=== PATIENT | female | born 1985 | race Hispanic/Latino ===

== ENCOUNTER 2017-02-21 18:27 | Emergency (ER) | payer SELFPAY ==
[2017-02-21 18:35] VITALS: BP 127/68; PULSE 107; RESP 16; TEMP 98.2; O2SAT 100
--- NOTE | 2017-02-21 19:40 | ED PDOC ---
HPI: Female Pain Time Seen by Provider: 02/21/17 18:41 Chief Complaint (Nursing): Female Genitourinary Chief Complaint (Provider): Vaginal Spotting History Per: Patient History/Exam Limitations: no limitations Onset/Duration Of Symptoms: Hrs Associated Symptoms: denies: Fever, Vomiting, Diarrhea, Back Pain Additional Complaint(s): 19:41 Hollie Reyes is a 32 year old 5-week female that presents to the ED with a chief complaint of vaginal spotting that she experienced today. Patient states that she has had superpubic pain this afternoon, and denies any vaginal bleeding or clotting, back pain, fever, vomiting, or diarrhea. PMD: None : 1 Para: 0 Past Medical History Reviewed: Historical Data, Nursing Documentation, Vital Signs Vital Signs: Last Vital Signs Temp 98.2 F 02/21/17 18:32 Pulse 107 H 02/21/17 18:32 Resp 16 02/21/17 18:32 BP 127/68 02/21/17 18:32 Pulse Ox 100 02/21/17 18:32 - Medical History PMH: No Chronic Diseases - Family History Family History: States: Unknown Family Hx - Allergies Allergies/Adverse Reactions: Allergies Allergy/AdvReac Type Severity Reaction Status Date / Time No Known Allergies Allergy Verified 02/21/17 18:35 Review of Systems Constitutional: Negative for: Fever Gastrointestinal: Negative for: Vomiting, Diarrhea Genitourinary Female: Positive for: Other (Pt experienced superpubic pain and vaginal spotting). Negative for: Vaginal Bleeding Musculoskeletal: Negative for: Back Pain Physical Exam - Reviewed Nursing Documentation Reviewed: Yes Vital Signs Reviewed: Yes - Physical Exam Appears: Positive for: Non-toxic, No Acute Distress Head Exam: Positive for: ATRAUMATIC, NORMOCEPHALIC Skin: Positive for: Normal Color, Warm Cardiovascular/Chest: Positive for: Regular Rate, Rhythm. Negative for: Murmur Respiratory: Positive for: Normal Breath Sounds. Negative for: Wheezing Gastrointestinal/Abdominal: Positive for: Soft, Tenderness (mild superpubic tenderness) Neurologic/Psych: Positive for: Alert, Oriented - ECG O2 Sat by Pulse Oximetry: 100 (RA) Pulse Ox Interpretation: Normal Medical Decision Making Medical Decision Makin:33 Initial Impression: Complication, DDx include Ectopic vs. Threatened Miscarriage Initial Plan: * ABO/RH Type * Type and Screen * Serium * Urine Dipstick * OB Transvaginal * Reevaluation * * FINDINGS: Uterus: Measures 6.4 x 3.6 x 4.0 cm. Single early intrauterine gestational sac identified. Yolk sac is seen. No pole is visualized. Estimated gestational age is approximately 5 weeks, based on a mean gestational sac diameter of 7.2 mm. Cervix appears closed. Right ovary: Within normal limits in appearance. Measures 2.3 x 1.3 x 1.4 cm. Flow seen in the right ovary on Doppler imaging, with no evidence of torsion. Left ovary: Within normal limits in appearance. Measures 3.0 x 1.8 x 3.0 cm. Flow seen in the left ovary on Doppler imaging, with no evidence of torsion. Cul-de-sac: No free fluid. IMPRESSION: Early intrauterine gestational sac containing a yolk sac, estimated gestational age of approximately 5 weeks. No pole is seen, and recommend a short term follow up ultrasound to confirm a viable intrauterine . Scribe Attestation: Documented by Inez Sheth, acting as a scribe for Jonathan Buitrago MD. Provider Scribe Attestation: All medical record entries made by the Scribe were at my direction and personally dictated by me. I have reviewed the chart and agree that the record accurately reflects my personal performance of the history, physical exam, medical decision making, and the department course for this patient. I have also personally directed, reviewed, and agree with the discharge instructions and disposition. Disposition - Clinical Impression Clinical Impression: Threatened - Patient ED Disposition Is Patient to be Admitted: No Doctor Will See Patient In The: Office Counseled Patient/Family Regarding: Studies Performed, Diagnosis, Need For Followup - Disposition Referrals: [facility] [Outside] Disposition: Routine/Home Disposition Time: 22:29 Condition: GOOD Additional Instructions: Follow up with your sales and marketing engineer within 1 week. Instructions: Threatened Miscarriage (ED)
--- NOTE | 2017-02-21 21:56 | US ---
EXAM: US , Transvaginal CLINICAL HISTORY: 32 years old, female; Signs and symptoms; Lmp or gestational age (in weeks): Unknown; Antepartum complications; Other: Spotting; ; Additional info: Vaginal spotting suprapubic pain TECHNIQUE: Real-time transvaginal obstetrical ultrasound of the maternal pelvis and a first trimester with image documentation. Transvaginal imaging was used for better evaluation of the fetus and adnexa. EXAM DATE/TIME: 02/21/2017 7:33 PM COMPARISON: No relevant prior studies available. FINDINGS: Uterus: Measures 6.4 x 3.6 x 4.0 cm. Single early intrauterine gestational sac identified. Yolk sac is seen. No pole is visualized. Estimated gestational age is approximately 5 weeks, based on a mean gestational sac diameter of 7.2 mm. Cervix appears closed. Right ovary: Within normal limits in appearance. Measures 2.3 x 1.3 x 1.4 cm. Flow seen in the right ovary on Doppler imaging, with no evidence of torsion. Left ovary: Within normal limits in appearance. Measures 3.0 x 1.8 x 3.0 cm. Flow seen in the left ovary on Doppler imaging, with no evidence of torsion. Cul-de-sac: No free fluid. IMPRESSION: Early intrauterine gestational sac containing a yolk sac, estimated gestational age of approximately 5 weeks. No pole is seen, and recommend a short term follow up ultrasound to confirm a viable intrauterine . See above for remaining findings.
== END 2017-02-21 22:39 | disposition home or self-care (01) ==
LOC: H.ER 18:27
DX: O20.0 Threatened abortion (principal); Z3A.01 Less than 8 weeks gestation of pregnancy

== ENCOUNTER 2017-10-18 20:10 | Inpatient (IN) | payer OTHER ==
[2017-10-18 20:42] VITALS: BMI 25.8
[2017-10-18] MEDS ORDERED: Lactated Ringer's 1,000 ML IV SCH ×2 (21:15)
[2017-10-18 21:34] LABS: BASO # 0.1 K/uL (0.0-0.2); BASO % 0.4 % (0.0-2.0); EOS # 0.1 K/uL (0.0-0.7); EOS % 0.5 % (0.0-4.0); HEMATOCRIT 39.6 % (34.0-47.0); LYMPH # 2.6 K/uL (1.0-4.3); LYMPH % 20.1 % (20.0-40.0); MEAN CELL VOLUME 88.1 fl (81.0-99.0); MEAN CORPUSCULAR HEMOGLOBIN 28.1 pg (27.0-31.0); MEAN CORPUSCULAR HGB CONC 31.8 g/dL (33.0-37.0); MEAN PLATELET VOLUME 8.4 fl (7.2-11.7); MONO # 1.2 K/uL (0.0-0.8); MONO % 9.1 % (0.0-10.0); NEUT # 9.1 K/uL (1.8-7.0); NEUT % 69.9 % (50.0-75.0); NRBC % 0.1 % (0.0-0.0); RED CELL DISTRIBUTION WIDTH 14.3 % (11.5-14.5)
[2017-10-18 21:53] VITALS: O2SAT 99
--- NOTE | 2017-10-18 23:24 | OBHP ---
Datetime: 10/18/2017 23:23 Admit Comment, IP Provider: 32-year-old EDC 10/24 LMP 01/17/17 presents for induction of labor s econdary to polyhydramnios with VICKI of 3 diagnosed today. He states the has otherwise been uncomplicated. She denies contractions spontaneous rupture of membranes and no bleeding or decreased movement. Past medical history and past surgical history denies No known drug allergies Food allergy:pineapple causing hives Medications: vitamins Social history denies tobacco alcohol or illicit drug use Impression: 39.1 weeks Oligohydramnios Plan: Admit for induction Patient discussed with Dr. Rutherford Pelvic Type - PN: Adequate Extremities - PN: Normal Abdomen - PN: Normal Breast - PN: Normal Lungs - PN: Normal Heart - PN: Normal Thyroid - PN: Normal Neurologic - PN: Normal HEENT - PN: Normal General - PN: Normal EGA AdmitDate IP: 39.1 Genitourinary Exam: Normal Datetime: 10/18/2017 20:38 IP Adm Impression: Term, intrauterine IP Admit Plan: Admit to unit; Initiate labor induction protocol Presentation-Admit: Vertex FHR - Baseline A Provider: 120 Membranes, Provider: Intact Comments, ACOG Physical Exam: A positive, rubella immune, hepatitis B surface antigen negative, RPR negative nonreactive 2 HIV nonreactive 2 GBS negative Gestation - Est Wks by US: 39.1 Vital Signs Provider: Within Normal Limits IP Chief Complaint: Other NICHD Variability Prov Fetus A: Moderate 6-25bpm NICHD Accel Fetus A IP Provider: 15X15 FHR Category Provider Fetus A: Category I NICHD Decel Fetus A IP Provider: None Dilatation, Provider: 3 Effacement, Provider: 80 Station, Provider: -2
[2017-10-19] MEDS ORDERED: Oxytocin 30 UNITS in Sodium Chloride 0.9% 500 ML IV SCH ×2
--- NOTE | 2017-10-19 09:18 | OBPN ---
Datetime: 10/19/2017 09:13 IP Progress Impression: Normal progression of labor IP Procedures: Artificial ROM IP Progress Plan: Augmentation; Anticipate Vaginal Delivery IP Progress Note Comment: Patient doing well reports contractions no vaginal bleeding or leakage of fluid Vital signs stable afebrile Cervix 3-4 cm 90% effaced and 0 station Intrauterine at 39+ weeks Oligohydramnios Artificial rupture of membranes Continue Pitocin augmentation Adequate pelvis, vertex presentation, estimated weight 7 pounds Anticipate normal vaginal delivery Vital Signs Provider: Reviewed Datetime: 10/18/2017 20:38 Membranes, Provider: Intact FHR - Baseline A Provider: 120 Gestation - Est Wks by US: 39.1 Presentation-Admit: Vertex NICHD Accel Fetus A IP Provider: 15X15 FHR Category Provider Fetus A: Category I NICHD Variability Prov Fetus A: Moderate 6-25bpm Dilatation, Provider: 3 Effacement, Provider: 80 Station, Provider: -2 NICHD Decel Fetus A IP Provider: None
[2017-10-19] MEDS: Oxytocin 30 UNITS in Sodium Chloride 0.9% 500 ML IV SCH ×3 (12:18→13:13)
[2017-10-19] MEDS ORDERED: Oxycodone/Acetaminophen 5/325 mg Tab PO PRN (12:41)
--- NOTE | 2017-10-19 12:57 | OBDS ---
DELIVERY PERSONNEL Delivery Doctor: Delmy Bacon MD Medical Surgery Nurse: Lisseth Rick RN MATERNAL INFORMATION Delivery Anesthesia: None Medications in Delivery: pitocin Maternal Complications: None RN Comments: Atramautic of vbiable babygirl Provider Comments: Delivered live baby girl at 12:12 PM the baby was bulb suctioned on the perineum and transferred to the maternal chest. The cord was clamped and cut 3 vessels noted to cord blood was obtained and sent to the lab. The placenta was delivered spontaneously at 12:18 PM intact. Pitocin w as infused to assist in uterine involution. There was a first-degree laceration was repaired with 2-0 Rapide. The estimated blood loss was 150 mL. The mother tolerated the procedure well the patient marce t to the nursery with Apgars of 9 and 9 weighing 3700 g LABOR SUMMARY EDC: 10/24/2017 00:00 No. Babies in Womb: 1 Attempted: No Labor Anesthesia: Epidural LABOR INFORMATION Reason for Induction: Oligohydramnios Onset of Labor: 10/19/2017 07:00 Complete Dilatation: 10/19/2017 10:30 Oxytocin: Induction Group B Beta Strep: Negative Steroids Given: None Reason Steroids Not Administered: Not Applicable Other Reason Not Administered: not required MEMBRANES Membranes Rupture Method: Artificial Rupture of Membranes: 10/19/2017 09:00 Length of Rupture (hrs): 3.20 Amniotic Fluid Color: Clear Amniotic Fluid Amount: Small Amniotic Fluid Odor: Normal STAGES OF LABOR Stage 1 hrs: 3 Stage 1 min: 30 Stage 2 hrs: 1 Stage 2 min: 42 Stage 3 hrs: 0 Stage 3 min: 6 Total Time in Labor hrs: 5 Total Time in Labor min: 18 VAGINAL DELIVERY Episiotomy: None Laceration Extension: First Degree Laceration Type: Perineal Laceration Repair: Yes Initial Vag Sponge Count: 16 Final Vag Sponge Count: 16 Initial Vag Sharps Count: 2 Final Vag Sharps Count: 2 Sponge Count Correct: Yes Sharps Count Correct: Yes BABY A INFORMATION Delivery Date/Time: 10/19/2017 12:12 Method of Delivery: Born in Route : No : N/A Forceps: N/A Vacuum Extraction: N/A Shoulder Dystocia : No SHOULDER DYSTOCIA BABY A Delivery Date/Time: 10/19/2017 12:12 PRESENTATION/POSITION BABY A Presentation: Cephalic Cephalic Presentation: Vertex Vertex Position: Left Occipital Anterior Breech Presentation: N/A PLACENTA INFORMATION BABY A Placenta Delivery Time : 10/19/2017 12:18 Placenta Method of Delivery: Spontaneous Placenta Status: Delivered SCORES BABY A Heart Rate 1 min: >100 bpm Resp Effort 1 min: Good Cry Reflex Irritability 1 min: Cough or Sneeze or Pulls Away Muscle Tone 1 min: Active Motion Color 1 min: Body [place], Extremities Blue Resuscitation Effort 1 min: N/A SCORE 1 MIN: 9 Heart Rate 5 min: >100 bpm Resp Effort 5 min: Good Cry Reflex Irritability 5 min: Cough or Sneeze or Pulls Away Muscle Tone 5 min: Active Motion Color 5 min: Body [place], Extremities Blue Resuscitation Effort 5 min: N/A SCORE 5 MIN: 9 INFORMATION BABY A Gestational Age at Delivery: 39.0 Gestational Status: Term Outcome : Liveborn Condition : Stable Sex: Female IDENTIFICATION/MEDS BABY A ID Band Number: [id number] WEIGHT/LENGTH BABY A Birthweight (gms): 3700 Weight (lb): 8 Weight (oz): 2 CORD INFORMATION BABY A No. Cord Vessels: 3 Nuchal Cord : N/A Cord Blood Taken: No Suction: Mouth; Nose ASSESSMENT BABY A Infant Complications: None Physical Findings at Delivery: Within Normal Limits Respirations: Appears Normal Elementary Educator/ALS Called : No Care By: rachel rick Transferred To: Remains with Mother
[2017-10-20 08:58] LABS: HEMATOCRIT 36.6 % (34.0-47.0); MEAN CELL VOLUME 87.8 fl (81.0-99.0); MEAN CORPUSCULAR HEMOGLOBIN 28.9 pg (27.0-31.0); MEAN CORPUSCULAR HGB CONC 32.9 g/dL (33.0-37.0); WHITE BLOOD COUNT 14.6 K/uL (4.8-10.8)
[2017-10-20] MEDS: Prenatal Multivit/Folic Acid/Iron Tab PO SCH (09:32)
[2017-10-21] MEDS: Prenatal Multivit/Folic Acid/Iron Tab PO SCH (08:50)
--- NOTE | 2017-10-21 09:01 | OBPPN ---
Datetime: 10/21/2017 09:00 PP Pain Prov: Within normal limits PP Nausea Prov: Denies PP Flatus Prov: Yes PP Breasts Prov: Not Done PP Heart Prov: Normal PP Lungs Prov: Normal PP Abdomen/Uterus Prov: Normal PP Lochia Prov: Not Done PP Vulva/Perineum Prov: Not Done PP CVA Tenderness Prov: Normal PP Extremities Prov: Normal PP Impression Prov: Normal progression PP Plan Prov: Discharge PP Progress Note Prov: doing well NPV f/u 4 -6 weeks motrin as needed Vital Signs Provider PP: Reviewed
--- NOTE | 2017-10-21 09:04 | OBDCSUM ---
Datetime: 10/21/2017 09:01 Discharged to, Provider: Home Follow up at, Provider: MD Dina Disch Instr Activity: Normal activity Disch Instr Diet: Regular Discharge Instructions, Provider: Routine instructions given Discharge Diagnosis, Provider: Term Delivered Follow up in weeks, Provider: 6 weeks Disch Referrals: None Contraception discussed, Prov: Yes Disch Activity Restrictions: No sexual activity; Nothing in vagina - [place], tampons, douche Discharge Comment, Provider: doing well Contraception after Delivery: Undecided
[2017-10-21 18:42] VITALS: BP 111/73; PULSE 82; RESP 18; TEMP 97.7
== END 2017-10-21 14:35 | disposition home or self-care (01) | DRG 775 ==
LOC: H.L&D 21:11 → H.OB/GYN 10-19 15:46
PROVIDERS: ADMIT Obstetrics & Gynecology; ATTEND Obstetrics & Gynecology
PROC: 4A1HXCZ Monitoring of Products of Conception, Cardiac Rate, External Approach (ICD-10-PCS; 2017-10-18)
PROC: 3E033VJ Introduction of Other Hormone into Peripheral Vein, Percutaneous Approach (ICD-10-PCS; 2017-10-18)
PROC: 0HQ9XZZ Repair Perineum Skin, External Approach (ICD-10-PCS; principal; 2017-10-19)
PROC: 10E0XZZ Delivery of Products of Conception, External Approach (ICD-10-PCS; 2017-10-19)
DX: O41.03X0 Oligohydramnios, third trimester, not applicable or unspecified (principal); O70.0 First degree perineal laceration during delivery; Z37.0 Single live birth; Z3A.39 39 weeks gestation of pregnancy

== ENCOUNTER 2017-11-02 02:12 | Emergency (ER) | payer OTHER ==
[2017-11-02 02:23] VITALS: BMI 10.1
[2017-11-02 02:26] VITALS: BP 112/69; PULSE 86; RESP 16; TEMP 97.9; O2SAT 97
--- NOTE | 2017-11-02 03:29 | ED PDOC ---
HPI: Allergic Reaction Time Seen by Provider: 11/02/17 02:39 Chief Complaint (Nursing): Allergic Reaction Chief Complaint (Provider): swollen lip History Per: Patient History/Exam Limitations: no limitations Onset/Duration Of Symptoms: Hrs Current Symptoms Are (Timing): Better Possible Cause: Unknown Associated Symptoms: Swelling Additional History Per: Patient Additional Complaint(s): 32 y/o female presents with swelling to right upper lip x 1 hour. Denies difficulty speaking/swallowing, chest pain, shortness of breath, palpitations, skin rash. Past Medical History Reviewed: Historical Data, Nursing Documentation, Vital Signs Vital Signs: Last Vital Signs Temp 97.9 F 11/02/17 02:23 Pulse 86 11/02/17 02:23 Resp 16 11/02/17 02:23 BP 112/69 11/02/17 02:23 Pulse Ox 97 11/02/17 02:23 - Medical History PMH: No Chronic Diseases Denies: Depression, Diabetes, HTN - Surgical History Surgical History: No Surg Hx - Family History Family History: States: Unknown Family Hx - Home Medications Home Medications: Ambulatory Orders Medication Instructions Recorded Vit Calc,Iron,Folic 1 tab PO DAILY 10/18/17 [ Vitamins] Ibuprofen [Motrin Tab] 600 mg PO TID #30 tab 10/21/17 - Allergies Allergies/Adverse Reactions: Allergies Allergy/AdvReac Type Severity Reaction Status Date / Time pineapple Allergy RASH Verified 11/02/17 02:23 Review of Systems ROS Statement: Except As Marked, All Systems Reviewed And Found Negative ENT: Positive for: Other (lip swelling) Physical Exam - Reviewed Nursing Documentation Reviewed: Yes Vital Signs Reviewed: Yes - Physical Exam Appears: Positive for: Well, Non-toxic, No Acute Distress Head Exam: Positive for: ATRAUMATIC, NORMAL INSPECTION, NORMOCEPHALIC Skin: Positive for: Normal Color Eye Exam: Positive for: Normal appearance ENT: Positive for: Other (mild swelling right upper lip) Neck: Positive for: Normal, Painless ROM Cardiovascular/Chest: Positive for: Regular Rate, Rhythm Respiratory: Positive for: Normal Breath Sounds Gastrointestinal/Abdominal: Positive for: Normal Exam Back: Positive for: Normal Inspection Extremity: Positive for: Normal ROM Neurologic/Psych: Positive for: Alert, Oriented - ECG O2 Sat by Pulse Oximetry: 97 - Progress ED Course And Treament: Benadryl PO Patient educated on findings, discharged with instructions to follow up PMD 2-3 days. Advised Benadryl PRN. Return to ED for worsening/concerning symptoms. Disposition - Clinical Impression Clinical Impression: Angioedema - Patient ED Disposition Is Patient to be Admitted: No Counseled Patient/Family Regarding: Diagnosis, Need For Followup - Disposition Disposition: Routine/Home Disposition Time: 03:31 Condition: IMPROVED Instructions: Angioedema (ED)
== END 2017-11-02 06:33 | disposition home or self-care (01) ==
LOC: H.ER 02:12
DX: T78.3XXA Angioneurotic edema, initial encounter (principal)